=== PATIENT | female | born 1970 | race Caucasian/White ===

== ENCOUNTER 2021-03-28 15:45 | Outpatient (CLI) | payer BC, OTHER ==
[~2021-03-28 15:45] MED LIST: ALPR0.5T7 PO; ASCO100018 PO; BETA15CR5 TP; BUTA-177 PO; CHOL500045 PO; CYAN1TAB29 PO; FLUO20CA19 PO; GABA300C10 PO; IBUP-1222 PO; IPRA0.2S35 INH; IRON PO; OXYC-380 PO; PROP20TA PO; TIZA4TAB2 PO; [UNRECOGNIZED DRUG - OTHER] TP
[2021-03-28] MEDS ORDERED: ASCO250T12 PO (16:31)
[2021-03-28] MEDS ORDERED: GABA-827 PO (16:31)
[2021-03-28] MEDS ORDERED: MULT-658 PO (16:31)
[2021-03-28] MEDS ORDERED: PROP60TA PO (16:31)
[2021-03-28] MEDS ORDERED: budesonide NS (16:31)
[2021-03-28] MEDS ORDERED: MONT10TA6 PO ×2 (16:31→16:32)
[2021-03-28] MEDS ORDERED: BACL-19 PO (16:31)
[2021-03-28] MEDS ORDERED: FLUO40CA9 PO (16:31)
[2021-03-28] MEDS ORDERED: IPRA15SP NS (16:31)
[2021-03-28] MEDS ORDERED: MULT-706 PO (16:31)
== END 2021-03-28 23:59 | disposition home or self-care (01) ==
LOC: STAR 15:45
PROVIDERS: ATTEND Otolaryngology
DX: Z02.9 Encounter for administrative examinations, unspecified (principal)

== ENCOUNTER → 2021-03-31 | Outpatient (CLI) | payer BC ==
[~2021-03-31] MED LIST changes: +ASCO250T12 PO; +BACL-19 PO; +FLUO40CA9 PO; +GABA-827 PO; +IPRA15SP NS; +MONT10TA6 PO; +MULT-658 PO; +MULT-706 PO; +PROP60TA PO; +budesonide NS
== END | disposition home or self-care (01) ==
LOC: STAR 15:46
PROVIDERS: ATTEND Otolaryngology
DX: Z20.822 Contact with and (suspected) exposure to COVID-19 (principal)
CPT/HCPCS: U0003; U0005

== ENCOUNTER 2021-04-05 05:42 | Day surgery (SDC) | payer BC, OTHER ==
[~2021-04-05] VITALS: Ht 166.4 cm; Wt 91.9 kg
[2021-04-05 06:25] VITALS: BP 135/83
[2021-04-05] MEDS ORDERED: CHLORHEXIDINE 15 ML UDC PO ONE (06:30)
[2021-04-05] MEDS ORDERED: LACTATED RINGERS 1,000 ML IV SCH (06:30)
[2021-04-05 06:35] LABS: HCG UR SG 1.024 (1.003-1.030)
[2021-04-05] MEDS ORDERED: BACITRACIN OINT 500U/GM, 15 GM ONE (06:45)
[2021-04-05] MEDS ORDERED: LIDOCAINE/PF 1%, 30ML ONE (06:45)
[2021-04-05] MEDS ORDERED: EPINEPHRINE 1 MG/ML, 1ML ONE (06:45)
[2021-04-05] MEDS ORDERED: FLUORESCEIN SODIUM 500 MG/5 ML ONE (06:45)
[2021-04-05] MEDS ORDERED: BACITRACIN 50,000 UNIT ONE (06:45)
[2021-04-05] MEDS ORDERED: EPINEPHRINE TOPICAL SOLN 1 MG/ML, 30ML ONE (06:45)
[2021-04-05] MEDS ORDERED: OXYMETAZOLINE NASAL SPRAY 0.05%,30ML ONE (06:45)
[2021-04-05] MEDS ORDERED: MEPERIDINE/PF 25MG/0.5ML IVPush PRN (07:30)
[2021-04-05] MEDS ORDERED: LABETALOL 5MG/ML, 20ML IV PRN (07:30)
[2021-04-05] MEDS ORDERED: PROMETHAZINE 25 MG/ML, 1ML IVPush PRN (07:30)
[2021-04-05] MEDS ORDERED: DIPHENHYDRAMINE 50 MG/ML, 1ML IVPush PRN (07:30)
[2021-04-05] MEDS ORDERED: HALOPERIDOL 5 MG/ML IV PRN (07:30)
[2021-04-05] MEDS ORDERED: hydrALAzine 20 MG/ML, 1ML IV PRN (07:30)
[2021-04-05] MEDS ORDERED: OXYcodone 5 MG/5 ML ORAL.SOL UDC PO PRN (07:30)
[2021-04-05] MEDS ORDERED: HYDROmorphone 1 MG/ML, 1ML INJ IVPush PRN (07:30)
[2021-04-05] MEDS ORDERED: ACETAMINOPHEN 325 MG TABLET PO PRN (07:30)
[2021-04-05] MEDS ORDERED: MIDAZOLAM 1 MG/ML, 2ML ONE (07:34)
[2021-04-05] MEDS ORDERED: FENTANYL PF 250 MCG/5ML ONE (07:34)
[2021-04-05] MEDS ORDERED: EPHEDRINE 50 MG/ML, 1ML ONE (08:42)
[2021-04-05] MEDS ORDERED: ROCURONIUM 10MG/ML,5ML ONE (08:47)
[2021-04-05] MEDS ORDERED: CEFAZOLIN 1,000 MG ONE (08:47)
[2021-04-05] MEDS ORDERED: PROPOFOL 10 MG/ML, 20ML ONE (08:47)
[2021-04-05] MEDS ORDERED: GLYCOPYRROLATE 0.2MG/1ML, 5ML ONE (08:47)
[2021-04-05] MEDS ORDERED: NEOSTIGMINE 1 MG/ML, 10ML ONE (08:47)
[2021-04-05] MEDS ORDERED: ONDANSETRON 2MG/ML, 2ML ONE (08:47)
[2021-04-05] MEDS ORDERED: SUCCINYLCHOLINE 20 MG/ML, 10ML ONE (08:47)
[2021-04-05] MEDS ORDERED: DEXAMETHASONE 4 MG/ML, 1ML ONE (08:47)
[2021-04-05] MEDS ORDERED: PROMETHAZINE 25 MG/ML, 1ML ONE (09:06)
[2021-04-05] MEDS ORDERED: FENTANYL PF 100 MCG/2ML ONE ×3 (09:11→09:52)
[2021-04-05] MEDS: FENTANYL PF 100 MCG/2ML IV PRN ×5 (09:17→09:54)
[2021-04-05] MEDS ORDERED: ACETAMINOPHEN 650 MG/20.3 ML UDC ONE (09:31)
[2021-04-05] MEDS ORDERED: OXYcodone 5 MG/5 ML ORAL.SOL UDC ONE (09:32)
[2021-04-05] MEDS ORDERED: HYDROmorphone 1 MG/ML, 1ML INJ ONE (09:52)
== END 2021-04-05 12:00 | disposition home or self-care (01) ==
LOC: OUT 05:42
PROVIDERS: ATTEND Otolaryngology
DX: J32.0 Chronic maxillary sinusitis (principal); H80.03 Otosclerosis involving oval window, nonobliterative, bilateral; F41.9 Anxiety disorder, unspecified; F32.9 Major depressive disorder, single episode, unspecified; Z79.891 Long term (current) use of opiate analgesic; Z79.899 Other long term (current) drug therapy; Z98.890 Other specified postprocedural states; Z91.048 Other nonmedicinal substance allergy status
CPT/HCPCS: 31256; 31257; 81025; 88304; 88311; J0171; J0690; J1100; J1170; J2250; J2405; J2550; J2704; J2710; J3010; J7120; J0330

== ENCOUNTER 2021-04-12 05:59 | Day surgery (SDC) | payer BC, OTHER ==
[~2021-04-12] VITALS: Ht 165.1 cm; Wt 94.6 kg
[2021-04-12 06:44] VITALS: BP 117/76
[2021-04-12 06:46] VITALS: BP 117/76
[2021-04-12] MEDS ORDERED: OXYMETAZOLINE NASAL SPRAY 0.05%,30ML ONE (06:50)
[2021-04-12] MEDS ORDERED: LIDOCAINE 4%, 4 ML SYR/CANN TP ONE ×2 (07:48→07:50)
== END 2021-04-12 08:10 | disposition home or self-care (01) ==
LOC: OUT 05:59
PROVIDERS: ATTEND Otolaryngology
DX: J32.0 Chronic maxillary sinusitis (principal); Z20.822 Contact with and (suspected) exposure to COVID-19; Z79.899 Other long term (current) drug therapy
CPT/HCPCS: 87635